=== PATIENT | male | born 1980 | race African-American/Black ===

== ENCOUNTER 2020-12-10 01:08 | Emergency (ER) | payer MEDICAID ==
[~2020-12-10] VITALS: Ht 182.9 cm; Wt 95.0 kg
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
[2020-12-10] MEDS ORDERED: PROMETHAZINE 25 MG/ML, 1ML IM ONE (01:30)
[2020-12-10] MEDS ORDERED: SODIUM CHLORIDE 0.9% 1,000ML IVBOLUS ONE (01:30)
[2020-12-10] MEDS ORDERED: FAMOTIDINE 20 MG/2 ML IVPush ONE (01:30)
[2020-12-10] MEDS ORDERED: ONDANSETRON 2MG/ML, 2ML IVPush ONE (01:30)
[2020-12-10] MEDS ORDERED: SODIUM CHLORIDE FLUSH 10ML SYR IVF ONE (01:30)
[2020-12-10] MEDS ORDERED: FAMOTIDINE 20 MG/2 ML ONE (01:48)
[2020-12-10] MEDS ORDERED: ONDANSETRON 2MG/ML, 2ML ONE (01:48)
[2020-12-10] MEDS ORDERED: PROMETHAZINE 25 MG/ML, 1ML ONE (01:48)
[2020-12-10 01:57] LABS: BASOPHILS % (AUTO) 0 % (0-1); EOSINOPHILS % (AUTO) 0 % (1-7); LYMPHOCYTES % (AUTO) 12 % (22-44); MEAN CORPUSCULAR HEMOGLOBIN 28.8 pg (27.5-34.5); MEAN PLATELET VOLUME 8.1 fL (7.4-10.4); MONOCYTES % (AUTO) 4 % (2-9); NEUTROPHILS % (AUTO) 84 % (42-75); PLATELET COUNT 349 x10^3/uL (130-400); RED CELL DISTRIBUTION WIDTH 12.9 % (9.4-14.8)
[2020-12-10 02:06] LABS: ALANINE AMINOTRANSFERASE 31 U/L (12-78); ALBUMIN 3.7 g/dL (3.4-5.0); ANION GAP 3 mmol/L (5-15); CALCIUM 9.2 mg/dL (8.5-10.1); CHLORIDE 103 mmol/L (98-107); CREATININE 1.34 mg/dL (0.7-1.3)
[2020-12-10 02:08] LABS: ALKALINE PHOSPHATASE 107 U/L (45-117); BILIRUBIN,TOTAL 0.5 mg/dL (0.2-1.0); TOTAL PROTEIN 8.3 g/dL (6.4-8.2)
--- NOTE | 2020-12-10 02:45 | NUR ---
Patient given discharge instructions and they have confirmed that they understand the instructions. Patient ambulatory with steady gait. NAD, all questions answered appropriately, denies additional needs at this time. No personal belongings left in room after discharge.
[2020-12-10 02:46] VITALS: BP 154/82
== END 2020-12-10 08:33 | disposition home or self-care (01) ==
LOC: ED 02:00
DX: K29.20 Alcoholic gastritis without bleeding (principal); F10.129 Alcohol abuse with intoxication, unspecified; E11.65 Type 2 diabetes mellitus with hyperglycemia; R11.2 Nausea with vomiting, unspecified; Y90.0 Blood alcohol level of less than 20 mg/100 ml
CPT/HCPCS: 36415; 80053; 80320; 82800; 83690; 85025; 96361; 96372; 96374; 96375; 99284; J2405; J2550; J7030; G0480